=== PATIENT | female | born 1980 | race Caucasian/White ===

== ENCOUNTER 2016-12-11 14:53 | Observation (INO) | payer OTHER ==
[~2016-12-11] VITALS: Ht 177.8 cm; Wt 121.6 kg
--- NOTE | 2016-12-12 16:43 | NUR ---
1630 - PATIENT DISCHARGED HOME/MD ORDER. IV REMOVED. APPTS. AND PRESCRIPTIONS GIVEN. AMBULATORY. HOME WITH FAMILY VIA PRIVATE VEHICLE.
== END 2016-12-12 16:30 | disposition home or self-care (01) ==
LOC: ER 14:53 → MED 19:23
PROVIDERS: ADMIT Obstetrics & Gynecology
DX: N92.0 Excessive and frequent menstruation with regular cycle (principal); D62 Acute posthemorrhagic anemia; E28.2 Polycystic ovarian syndrome; Z80.3 Family history of malignant neoplasm of breast; Z79.1 Long term (current) use of non-steroidal anti-inflammatories (NSAID)
CPT/HCPCS: 36415; 72197; 96360; A9579; G0378; P9021

== ENCOUNTER 2016-12-20 | Emergency (ER) | payer OTHER | END 2016-12-20 05:00 | disposition short-term general hospital (02) | LOC: ER | DX: D50.0 Iron deficiency anemia secondary to blood loss (chronic) (principal); R11.0 Nausea; Z79.899 Other long term (current) drug therapy; Z91.018 Allergy to other foods; Z91.040 Latex allergy status | CPT/HCPCS: 36415 ==